=== PATIENT | female | born 1960 | race American Indian/Alaskan Native ===

== ENCOUNTER 2017-08-20 01:12 | Emergency (ER) | payer SELFPAY ==
[2017-08-20] MEDS ORDERED: FUL-GLO OP ONE (07:36)
[2017-08-20] MEDS ORDERED: BSS OU ONE (07:38)
[2017-08-20] MEDS ORDERED: TETRACAINE 0.5% OU ONE (07:38)
--- NOTE | 2017-08-20 08:16 | Emergency Department Report ---
[facility] Chief Complaint: Eye Problems Stated Complaint: EYE PAIN Time Seen by Provider: 08/20/17 07:36 Duration: 1 Day Side: Left Severity: mild Symptoms: Yes Eye Itching, Yes Eye Redness, No Eye Pain, No Mucous Drainage, No Purulent Drainage, No Blurred Vision, No Preceding URI, No H/O Allergic Rhinitis , No Contact Lens Use, No Trauma, No Fever, No Headache Other History: This is a 56-year-old female nontoxic, well nourished in appearance, no acute signs of distress presents to the ED with c/o of left eye crusting, itching with slight swelling in the left eyelid lower. Patient denies any visual changes or blurry vision. Patient denies any trauma to the eye. Patient denies any fever, chills, nausea, vomiting, chest pain, shortness of breath, headache or stiff neck. Patient denies any pain to the eye. Patient states allergies to penicillin with no significant past medical history. ED Review of Systems ROS: Stated complaint: EYE PAIN Other details as noted in HPI Constitutional: denies: chills, fever Eyes: eye discharge. denies: eye pain, vision change ENT: denies: ear pain, throat pain Respiratory: denies: cough, shortness of breath, wheezing Cardiovascular: denies: chest pain, palpitations Endocrine: no symptoms reported Gastrointestinal: denies: abdominal pain, nausea, diarrhea Genitourinary: denies: urgency, dysuria, discharge Musculoskeletal: denies: back pain, joint swelling, arthralgia Skin: denies: rash, lesions Neurological: denies: headache, weakness, paresthesias Psychiatric: denies: anxiety, depression Hematological/Lymphatic: denies: easy bleeding, easy bruising ED Past Medical Hx - Past Medical History Previous Medical History?: Yes Additional medical history: Rt breast CYST - Surgical History Past Surgical History?: Yes Additional Surgical History: c sect X1 - Social History Smoking Status: Current Every Day Smoker Substance Use Type: None - Medications Home Medications: Home Medications Medication Instructions Recorded Confirmed Last Taken Type HYDROcodone/APAP 5-325 [[place] 1 each PO Q6HR PRN #20 tablet 12/20/14 Unknown Rx 5/325] Sulfamethoxazole/Trimethoprim 1 each PO Q12H #20 tablet 12/20/14 Unknown Rx [Bactrim DS TAB] Ciprofloxacin 0.3% (Nf) 2 drops OS BID #1 drops 08/20/17 Unknown Rx [Ciprofloxacin OPTH] Clindamycin [Clindamycin CAP] 300 mg PO Q8H 7 Days cap 08/20/17 Unknown Rx [facility] Exam - Exam General: Vital signs noted. No distress. Alert and acting appropriately. GENERAL: The patient is a well-developed, well-nourished in no apparent distress. Patient is alert and acting appropriately for age. Alert and oriented 3, no apparent distress, normal gait, atraumatic. HEENT: Head is normocephalic and atraumatic. PERRL, Extraocular muscles are intact. Pupils are equal, round, and reactive to light and accommodation. Slight swelling to left lower eyelid with no induration or flutance. No periorbital cellulitis. Nares appeared normal. Mouth is well hydrated and without lesions. Mucous membranes are moist. Posterior pharynx clear of any exudate or lesions. Mouth is well hydrated and without lesions. Tonsils not erythematous or swollen. Uvula midline. Tongue elevated. Mucous members are moist. Posterior pharynx clear, no exudate or lesions. Patent airways. NECK: Supple. No carotid bruits. No lymphadenopathy or thyromegaly.nontender. No meningitic signs are noted. LUNGS: Clear to auscultation. Non labor breathing. No intercostal retractions. Symmetrical with respiration, no wheezing, no rales, or crackles. HEART: Regular rate and rhythm without murmur, rubs or gallops. No reproducible. S1, S2 present, regular rate and rhythm without murmur, no rubs, no gallops. ABDOMEN: Soft, nontender, and nondistended. Positive bowel sounds. No hepatosplenomegaly was noted. No guarding or rebound tenderness, negative epigastric bruit. Negative psoas sign, negative robles sign, negative McBurneys sign EXTREMITIES: Without any cyanosis, clubbing, rash, lesions or edema. Peripheral pulses intact. Capillary refill less than 2 seconds. Full range of motion bilaterally. NEUROLOGIC: Cranial nerves II through XII are grossly intact. Alert and oriented x 3. Normal gait. Symmetrical strength and sensation. Reflexes 2+ throughout. Cerebellar testing normal. GCS score of 15. PSYCHIATRIC: Normal affect with no suicidal or homicidal ideations. Eye Exam: Neither Injection, Neither Chemosis, Neither Abnormal Pupil, Neither EOMI, Neither Eye Foreign Body, Neither Lid Foreign Body, Neither Mucous Discharge, Neither Purulent Discharge, Neither Fluorescein Uptake, Neither Fluorescein Uptake (slit lamp), Neither Cell/Flare (slit lamp), Neither Corneal Edema, Neither Photophobia HEENT: No Nasal Congestion, No Pharyngeal Erythema Remainder of HEENT: Normal Lungs: Yes Clear Lung Sounds, Yes Good Air Exchange, No Wheezes, No Stridor, No Cough, No Nasal Flaring, No Retractions, No Use of Accessory Muscles Exam: Under Lan lamp, I used fluorescein and tetracaine to examine cornea for corneal abrasion or foreign body, negative for coronary abrasion or foreign body noted upon exam. Tonopen-12 left eye ED Course Vital Signs 08/20/17 01:21 Temperature 98.5 F Pulse Rate 82 Respiratory 16 Rate Blood Pressure 121/78 O2 Sat by Pulse 99 Oximetry - Reevaluation(s) Reevaluation #1: 08/20/17 08:14 Patient is speaking in full sentences with no signs of distress noted. ED Medical Decision Making - Medical Decision Making This is a 56-year-old female that presents with left conjunctivitis. Patient was examined by me. There is slight swelling to the lower eyelid but there is no induration or fluctuance or any signs of periorbital cellulitis. I will treat patient empirically with clindamycin by mouth as well as ciprofloxacin eyedrops. Patient was instructed to Follow-up with a business administration program chair doctor in 24 hours or if symptoms worsen and continue return to emergency room as soon as possible. At time of discharge, the patient does not seem toxic or ill in appearance. No acute signs of distress noted. Patient agrees to discharge treatment plan of care. No further questions noted by the patient. Critical care attestation.: If time is entered above; I have spent that time in minutes in the direct care of this critically ill patient, excluding procedure time. ED Disposition Clinical Impression: Conjunctivitis, left eye Qualifiers: Conjunctivitis type: acute Acute conjunctivitis type: bacterial Qualified Code( s): H10.32 - Unspecified acute conjunctivitis, left eye Disposition: - TO HOME OR SELFCARE Is pt being admited?: No Does the pt Need Aspirin: No Condition: Stable Instructions: Conjunctivitis (ED) Additional Instructions: Follow-up with a business administration program chair doctor in 24 hours or if symptoms worsen and continue return to emergency room as soon as possible. Apply warm compressors to left eyelid area. Prescriptions: Ciprofloxacin 0.3% (Nf) [Ciprofloxacin OPTH] 2 drops OS BID #1 drops Clindamycin [Clindamycin CAP] 300 mg PO Q8H 7 Days cap Referrals: PRIMARY CARE, [Primary Care Provider] - 3-5 Days [facility] [Outside] - 3-5 Days CHRISTINA WHITTAKER MD [Staff Physician] - 24 Hours Forms: Work/School Release Form(ED)
[2017-08-20 08:37] VITALS: BP 132/80
== END 2017-08-20 08:36 | disposition home or self-care (01) ==
LOC: ED 01:12
DX: H10.9 Unspecified conjunctivitis (principal); F17.200 Nicotine dependence, unspecified, uncomplicated; Z88.0 Allergy status to penicillin
CPT/HCPCS: 99283